=== PATIENT | male | born 1955 | race Asian ===

== ENCOUNTER 2020-07-20 19:17 | Emergency (ER) | payer OTHER ==
[~2020-07-20] VITALS: Ht 182.9 cm; Wt 81.6 kg
[~2020-07-20 19:17] MED LIST: APLISOL5 UNIT/0.1 ID
[2020-07-20 19:27] VITALS: BP 136/79; TEMP 98
[2020-07-20 19:45] LABS: PLATELET COUNT 68 K/uL (142-355)
[2020-07-20 19:59] LABS: POTASSIUM 3.3 mmol/L (3.6-5.2)
[2020-07-20] MEDS ORDERED: DONE5TAB PO (22:45)
[2020-07-20] MEDS ORDERED: ASPIRIN 81 LOW81 MG PO (22:49)
[2020-07-20] MEDS ORDERED: B-121000 MC4 PO (22:52)
[2020-07-20] MEDS ORDERED: TIVICAY50 MG PO (22:55)
[2020-07-20] MEDS ORDERED: DESCOVY 200-251 TAB PO (22:57)
[2020-07-20] MEDS ORDERED: ESOMEPRAZOLE MA20 M1 PO (23:05)
[2020-07-20] MEDS ORDERED: FERROUS SULF325 M1 PO (23:09)
[2020-07-20] MEDS ORDERED: FA-80.8 M1 PO (23:12)
[2020-07-20] MEDS ORDERED: KEPPRA750 MG PO ×2 (23:20→23:23)
[2020-07-20] MEDS ORDERED: NAMENDA5 MG PO (23:25)
[2020-07-20] MEDS ORDERED: SERTRALINE HYD100 MG PO (23:27)
[2020-07-20] MEDS ORDERED: VITAMIN B650 MG PO (23:35)
[2020-07-20] MEDS ORDERED: DOCU100C10 PO (23:37)
[2020-07-20] MEDS ORDERED: ZIPR80CA PO (23:40)
[2020-07-20] MEDS ORDERED: MIRALAX17 GM PO (23:44)
[2020-08-05] MEDS ORDERED: MEMA5TAB PO (09:00)
[2020-08-05] MEDS ORDERED: DIVA125C PO ×2 (09:01)
[2020-08-05] MEDS ORDERED: CHOL100034 PO (09:01)
[2020-08-05] MEDS ORDERED: DONE5TAB PO (09:03)
== END 2020-07-20 21:05 | disposition other institution (70) ==
LOC: ED 19:17
PROVIDERS: Family Medicine
DX: R45.1 Restlessness and agitation (principal); Z11.59 Encounter for screening for other viral diseases; Z04.6 Encounter for general psychiatric examination, requested by authority
CPT/HCPCS: 36415; 80053; 85007; 85027; 87635; 93005; 99283; U0003